=== PATIENT | female | born 1945 | race Caucasian/White ===

== ENCOUNTER 2018-06-26 19:02 | Emergency (ER) | payer MEDICARE ==
[~2018-06-26] VITALS: Ht 162.6 cm; Wt 88.9 kg
[~2018-06-26 19:02] MED LIST: ACCUNEB SO1.25 MG/1 INH; ADVAIR HFA 230M12 GM INH; ADVAIR INHALER; ALDACTONE25 MG PO; ALLEGRA ALLERG180 MG PO; AMARYL4 MG PO; AMBIEN 10 MG TA10 MG PO; ASPIRIN EC81 M1 PO; ASPIRIN81 M2 PO; AUGMENTIN 875875 MG PO; BENADRYL25 MG PO; BROVANA15 MCG/2 M INH; CARBIDOPA-LEVO1 EAC2 PO; CEFAZOLIN2 GM/50 ML IV; CELEXA20 MG PO; CITROMA296 ML PO; CLEOCIN HCL300 MG PO; CLONAZEPAM 1 MG1 M1 PO; COLACE100 MG PO; COLESTIPOL HCL1 G1 PO; COUMADIN; COUMADIN 1MG TAB1 M1 PO; COUMADIN 3 MG TA3 M1 PO; COUMADIN7.5 MG PO; DEXTROSE 500.5 GM/ML IV PUSH; DUONEB 2.5-0.5 M3 ML INH; ENOXAPARIN100 MG/11 SUBQ; FENTANYL 0.50 MCG/ML IV; FUROSEMIDE; GARLIC100 MG PO; GLUCAGON HCL1 MG IM; GLUCOSE GEL38 GM PO; HYDROCODONE-AP1 EAC6 PO; JANUVIA 50 MG T50 M1 PO; JANUVIA100 MG PO; JUVEN PACKET1 EACH PO; KEFLEX250 MG PO; KEFLEX500 MG PO; KLOR-CON 10 ER10 MEQ PO; LANOXIN 0.250.25 MG; LANTUS SUBQ; LASIX 40 MG TAB40 M2 PO; LASIX 80 MG TAB80 MG PO; LEVEMIR SUBQ; LEVOTHYROXIN0.025 MG PO; LEVOTHYROXINE0.05 MG PO; LIDOCAINE 4% K1 EACH TP; LIDOCAINE 4% TOP; LISINOPRIL5 MG; METFORMIN HCL1000 M1; MINOCIN100 MG PO; NAPHCON-A EYE D15 ML OPHTHALMIC; NORCO 5-325 TA1 EACH PO; NOVOLOG100 UNIT/1 SUBQ; NYAMYC15 GM TOP; OXYCODONE HCL 55 MG PO; OXYCODONE HCL10 MG PO; OXYCONTIN10 M1 PO; PEPCID AC20 MG PO; PERCOCET PO; PREDNISONE 20 M20 MG PO; PRILOSEC20 MG PO; SINEMET 25-1001 EAC1 PO; SINGULAIR 10 MG10 M1 PO; SODIUM CHLORIDE10 ML IV; SYMBICORT160 MCG/4. INH; TRADJENTA5 MG PO; VENTOLIN HFA 1818 GM INH; VERAPAMIL ER240 M1; VITAMIN D3400 UNIT PO; VITAMINC500 PO; ZOSYN 4/0.5 GM4.5 G2 IVPB
[2018-06-26] MEDS ORDERED: MELATONIN5 M1 (19:15)
[2018-06-26 19:43] LABS: ABSOLUTE BASOPHILS 0.1 thou/uL (0.0-0.2); ABSOLUTE EOSINOPHILS 0.1 thou/uL (0.0-0.7); ABSOLUTE LYMPHOCYTES 0.9 thou/uL (0.8-5.3); ABSOLUTE MONOCYTES 1.1 thou/uL (0.0-1.2); ABSOLUTE NEUTROPHILS 6.8 thou/uL (1.6-8.1); BASOPHILS 0.6 %; EOSINOPHILS 0.8 %; HEMATOCRIT 35.6 % (37.0-47.0); HEMOGLOBIN 11.4 gm/dL (12.0-15.0); MCH 28.6 pg (26.0-34.0); MCV 89.2 fL (80.0-100.0); MONOCYTES 12.4 %; MPV 11.3 fl. (7.2-11.1); NUCLEATED RBCS 0 /100WBC; PLATELET COUNT* 172 thou/uL (150-400); POLYS 76.2 %; RBC 3.99 mil/uL (4.20-5.00); RDW-CV 16.9 % (10.5-14.5); WBC 8.9 thou/uL (4.0-11.0)
[2018-06-26 19:52] LABS: ANION GAP 7 mmol/L (7-16); BUN 32 mg/dL (7-18); CALCIUM 8.1 mg/dL (8.5-10.1); CHLORIDE 99 mmol/L (98-107); CO2 31 mmol/L (21-32); CREATININE 1.8 mg/dL (0.6-1.3); GLUCOSE 126 mg/dL (70-99); POTASSIUM 4.3 mmol/L (3.5-5.1); SODIUM 137 mmol/L (136-145)
[2018-06-26 19:53] LABS: APTT 57.7 Seconds (25.0-31.3); PROTIME 62.9 Seconds (9.20-11.50)
[2018-06-26 20:02] LABS: ALBUMIN 2.6 g/dL (3.4-5.0); ALKALINE PHOSPHATASE 190 U/L (46-116); LIPASE 204 U/L (73-393); NT-PRO BRAIN NAT PEPTIDE 2815 pg/mL (<300); SGOT 15 U/L (15-37); SGPT < 6 U/L (30-65); TOTAL BILIRUBIN 0.7 mg/dL (<0.1-1.0); TOTAL PROTEIN 6.5 g/dL (6.4-8.2); TROPONIN-I LEVEL <0.06 ng/mL (<0.06)
[2018-06-26 20:03] LABS: INR 6.2
[2018-06-26 20:33] LABS: URINE BILIRUBIN NEGATIVE (Negative); URINE BLOOD NEGATIVE (Negative); URINE CLARITY CLEAR; URINE COLOR YELLOW; URINE GLUCOSE-RANDOM NEGATIVE (Negative); URINE KETONES NEGATIVE (Negative); URINE LEUKOCYTES 2+ (Negative); URINE NITRITE NEGATIVE (Negative); URINE PROTEIN NEGATIVE (Negative); URINE SPECIFIC GRAVITY 1.015 (1.005-1.030); URINE UROBILINOGEN 0.2 E.U./dl (0.2-1.0)
[2018-06-26 20:57] LABS: CASTS None Seen /LPF (None Seen); SQUAMOUS 4-10 Moderate /LPF (0-3)
[2018-06-26 20:59] LABS: BACTERIA 1-9 Few /HPF (None Seen); CRYSTALS None Seen /LPF (None Seen); URINE RBC 0-2 Rare /HPF (0-2); URINE WBC 6-15 Few /HPF (0-5)
[2018-06-26] MEDS ORDERED: KEFLEX500 M1 PO (21:02)
[2018-06-26] MEDS ORDERED: ONDANSETRON HCL4 M2 PO (21:02)
[2018-06-26 21:48] VITALS: BP 147/58
--- NOTE | 2018-06-27 10:05 | EKG ---
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 : 1945 Requested By: Tess Berman Order Number: [id number] MD: Gallito Hinkle Measurements Intervals [place] Rate: 80 P: HI: QRS: -75 QRSD: 160 T: 95 QT: 439 QTc: 507 Interpretive Statements Afib/flut and V-paced complexes No further analysis attempted due to paced rhythm Compared to ECG 02/20/2017 10:55:15 No significant changes Electronically Signed On 06-27-2018 10:05:10 CDT by Gallito Hinkle [email or web address] <ELECTRONICALLY SIGNED> By: Gallito Hinkle MD, [facility] 06/27/18 [phone] 39 Gallito Hinkle MD, [facility] /EPI
== END 2018-06-26 21:49 | disposition home or self-care (01) ==
LOC: M.ERS 19:02
PROVIDERS: Nurse Practitioner Family
DX: R79.1 Abnormal coagulation profile (principal); N39.0 Urinary tract infection, site not specified; E86.0 Dehydration; E11.9 Type 2 diabetes mellitus without complications; I48.91 Unspecified atrial fibrillation; J45.909 Unspecified asthma, uncomplicated; J44.9 Chronic obstructive pulmonary disease, unspecified; G47.30 Sleep apnea, unspecified; Z79.4 Long term (current) use of insulin; Z90.49 Acquired absence of other specified parts of digestive tract; Z98.890 Other specified postprocedural states; Z88.1 Allergy status to other antibiotic agents; Z88.2 Allergy status to sulfonamides; Z88.8 Allergy status to other drugs, medicaments and biological substances

== ENCOUNTER 2018-12-16 08:32 | Inpatient (IN) | payer MEDICARE ==
[2018-12-16] VITALS (10 sets, daily range): BP systolic 127–151; BP diastolic 58–79
[~2018-12-16] VITALS: Ht 162.6 cm; Wt 94.3 kg
[~2018-12-16 08:32] MED LIST changes: +CLONAZEPAM 0.50.5 M1 PO; -CLONAZEPAM 1 MG1 M1 PO; +COUMADIN 2 MG TA2 M1 PO; +KEFLEX500 M1 PO; -LEVOTHYROXIN0.025 MG PO; +MELATONIN5 M1; +ONDANSETRON HCL4 M2 PO; +SYNTHROID112 MC1 PO
[2018-12-16] MEDS ORDERED: ADVAIR 100-501 EACH INH (08:39)
[2018-12-16] MEDS ORDERED: ALBUTEROL2.5 MG/31 INH (08:39)
[2018-12-16] MEDS ORDERED: NORVASC10 MG PO (08:40)
[2018-12-16] MEDS ORDERED: PROMETHAZINE12.5 M1 PO (08:42)
[2018-12-16] MEDS ORDERED: ZOLOFT50 MG PO (08:42)
[2018-12-16] MEDS ORDERED: PREDNISONE 10 M10 MG PO (08:43)
[2018-12-16] MEDS ORDERED: MUCINEX600 MG PO (08:44)
[2018-12-16] MEDS ORDERED: HYDRALAZINE HC100 MG PO (08:45)
[2018-12-16] MEDS ORDERED: IPRATROPIU0.2 MG/1 M INH (08:45)
[2018-12-16] MEDS ORDERED: PEPCID20 MG PO (08:46)
[2018-12-16] MEDS ORDERED: DOXYCYCLINE 10100 MG PO (08:47)
[2018-12-16] MEDS ORDERED: BUMETANIDE2 M1 PO (08:47)
[2018-12-16] MEDS ORDERED: XANAX 0.25 MG0.25 MG PO (08:48)
[2018-12-16] MEDS ORDERED: PROTONIX40 M1 PO (08:50)
[2018-12-16] MEDS ORDERED: ADVIL200 M1 PO (08:51)
[2018-12-16] MEDS ORDERED: GABAPENTIN 100100 MG PO (08:51)
[2018-12-16] MEDS ORDERED: CATAPRES-TTS 11 EACH TRANSDERM (08:53)
[2018-12-16 09:02] LABS: BE 1.5 mmol/L (-2 to +3); PO2 75.1 mmHg (75.0-100.0); pH 7.304 (7.340-7.450)
[2018-12-16 09:03] LABS: PCO2 58.9 mmHg (35.0-45.0)
--- NOTE | 2018-12-16 09:07 | NUR ---
PT HAS MULTIPLE BRUISES TO BODY.
[2018-12-16 09:33] LABS: HEMATOCRIT 26.9 % (37.0-47.0); HEMOGLOBIN 8.5 gm/dL (12.0-15.0); MCH 29.3 pg (26.0-34.0); MCHC 31.7 g/dL (28.0-37.0); MCV 92.5 fL (80.0-100.0); MPV 9.8 fl. (7.2-11.1); NUCLEATED RBCS 0 /100WBC; PLATELET COUNT* 151 thou/uL (150-400); RDW-CV 19.5 % (10.5-14.5); WBC 13.3 thou/uL (4.0-11.0)
[2018-12-16 09:56] LABS: URINE BILIRUBIN NEGATIVE (Negative); URINE BLOOD NEGATIVE (Negative); URINE CLARITY CLEAR; URINE COLOR YELLOW; URINE GLUCOSE-RANDOM NEGATIVE (Negative); URINE KETONES NEGATIVE (Negative); URINE NITRITE-REFLEX NEGATIVE (Negative); URINE PROTEIN TRACE (Negative); URINE SPECIFIC GRAVITY 1.015 (1.005-1.030); URINE UROBILINOGEN 0.2 E.U./dl (0.2-1.0)
[2018-12-16 10:05] LABS: URINE LEUKOCYTES-REFLEX 3+ (Negative)
[2018-12-16 10:10] LABS: APTT 41.6 Seconds (25.0-31.3); INR 3.4; PROTIME 34.6 Seconds (9.20-11.50)
[2018-12-16 10:11] LABS: SQUAMOUS 0-3 Few /LPF (0-3); URINE RBC 0-2 Rare /HPF (0-2); URINE WBC-REFLEX >25 Many /HPF (0-5)
[2018-12-16 10:12] LABS: CASTS None Seen /LPF (None Seen); CRYSTALS None Seen /LPF (None Seen); YEAST-REFLEX Present (None Seen)
[2018-12-16 10:17] LABS: ALBUMIN 2.4 g/dL (3.4-5.0); ALKALINE PHOSPHATASE 144 U/L (46-116); ANION GAP 6 mmol/L (7-16); BUN 67 mg/dL (7-18); CALCIUM 7.8 mg/dL (8.5-10.1); CHLORIDE 104 mmol/L (98-107); CO2 28 mmol/L (21-32); CREATININE 2.1 mg/dL (0.6-1.3); GLUCOSE 178 mg/dL (70-99); MAGNESIUM 2.2 mg/dL (1.8-2.4); NT-PRO BRAIN NAT PEPTIDE 13550 pg/mL (<300); POTASSIUM 3.9 mmol/L (3.5-5.1); SGOT 32 U/L (15-37); SGPT 32 U/L (30-65); SODIUM 138 mmol/L (136-145); TOTAL BILIRUBIN 0.4 mg/dL (<0.1-1.0); TOTAL PROTEIN 5.6 g/dL (6.4-8.2); TROPONIN-I LEVEL <0.06 ng/mL (<0.06)
[2018-12-16 10:31] LABS: ABSOLUTE LYMPHOCYTES 1.2 thou/uL (0.8-5.3); ABSOLUTE MONOCYTES 0.9 thou/uL (0.0-1.2); ABSOLUTE NEUTROPHILS 11.2 thou/uL (1.6-8.1); ANISOCYTOSIS 1+; ATYPICAL LYMPHS 1 %; PLATELET ESTIMATE ADEQUATE
--- NOTE | 2018-12-16 12:16 | EKG ---
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
--- NOTE | 2018-12-16 20:18 | NUR ---
12/16 DAYS: NEW ADMIT FROM ED FOR RESPIRATORY DISTRESS, CHF EXACERBATION AND HYPOGLYCEMIA. B.S. LOW 69 HERE, PATIENT AT DINNER AFTER SUGAR OF 69 AND INCREASED TO 108. IV INFILTRATED, ATTEMPT FOR CENTRAL LINE WAS NOT SUCCESSFUL. RIGHT EJ WAS PLACED, PLAN FOR INFUSION THERAPY TO SEE TOMORROW IF NEEDED. PATIENT OFF BI-PAP UPON ARRIVAL, REMAINED AND TOLERATING 2L O2.
[2018-12-17] VITALS (10 sets, daily range): BP systolic 120–144; BP diastolic 54–62
--- NOTE | 2018-12-17 06:55 | NUR ---
PT TOLERATE NASAL CANNULA AT 2LPM BUT REQUESTED TO PUT ON BIPAP THE WHOLE NIGHT. RAGHAV BLEEDING AND RESPIRATORY DISTRESS
[2018-12-17 08:36] LABS: ABSOLUTE MONOCYTES 0.6 thou/uL (0.0-1.2); ABSOLUTE NEUTROPHILS 5.6 thou/uL (1.6-8.1); BASOPHILS 0.4 %; EOSINOPHILS 0.6 %; HEMATOCRIT 25.5 % (37.0-47.0); HEMOGLOBIN 7.9 gm/dL (12.0-15.0); LYMPHOCYTES 13.3 %; MCH 28.8 pg (26.0-34.0); MCHC 30.9 g/dL (28.0-37.0); MCV 93.5 fL (80.0-100.0); NUCLEATED RBCS 0 /100WBC; PLATELET COUNT* 134 thou/uL (150-400); POLYS 77.7 %; RBC 2.73 mil/uL (4.20-5.00); RDW-CV 19.6 % (10.5-14.5); WBC 7.2 thou/uL (4.0-11.0)
[2018-12-17 08:45] LABS: ALBUMIN 2.2 g/dL (3.4-5.0); CALCIUM 7.7 mg/dL (8.5-10.1); TOTAL BILIRUBIN 0.4 mg/dL (<0.1-1.0); TOTAL PROTEIN 5.1 g/dL (6.4-8.2)
[2018-12-17 08:53] LABS: BE 2.7 mmol/L (-2 to +3); PCO2 VENOUS 47.3 mmHg (41.0-51.0); PO2 VENOUS 169.8 mmHg (35.0-45.0)
--- NOTE | 2018-12-17 10:45 | NUR ---
SPOKE WITH DTR AT BEDSIDE, PT WILL OPEN HER EYES AND ANSWER SIMPLE QUESTIONS. [facility], MOST RECENTLY ADMITTED TO SNF ON 12/07. PER DTR, PT HAS BEEN IN AND OUT OF THE [facility] [place] AND SNF AT [facility] SINCE . WILL CHECK WITH ADMITTING FOR HOW MANY HOSPITAL DAYS AND SNF DAYS THEN PATIENT STILL HAS IN HER BENEFIT PERIOD. DISCUSSED ROLE OF CASE MGT WITH DTR, WILL CONTINUE TO FOLLOW.
--- NOTE | 2018-12-17 10:50 | NUR ---
Nutrition: Pt has pressure ulcers. Per RN, they are not bad. Pt is M/S tele. Will defer further assessment at this time.
--- NOTE | 2018-12-17 10:55 | NUR ---
SPOKE WITH PT AND DTR AT BEDSIDE. PT ALERT AND ABLE TO ANSWER QUESTIONS. PT HAS BEEN VERY INDEP IN HER SENIOR APT, SHE WALKS SEVERAL MILES TO GO TO [facility] [employer] [facility], HAS BEEN DOING VERY WELL AT HOME PRIOR TO THIS ADMISSION. VERY BRIEFLY DISCUSSED DISCHARGE OPTIONS, DEPENDING ON HOW SHE IS DOING WHEN SHE DISCHARGES. DTR SAID THAT PT COULD COME STAY WITH EITHER DTR, THEY WOULD KEEP HER APT UNTIL THE PT DECIDED IF SHE WANTED TO GO BACK TO LIVING ALONE OR NOT. ANTICIPATE PT WILL NEED SOME LEVEL OF REHAB AT DISCHARGE. CASE MGT WILL CONTINUE TO FOLLOW.
--- NOTE | 2018-12-17 13:01 | NUR ---
REPORT GIVEN TO JOLIE GRIJALVA, ALL QUESTIONS ANSWERED. PATIENT TRANSFERED BY BED TO ROOM 205 WITH NURSING STAFF. CHART, BELONGINGS AND MEDICATION SENT WITH PATIENT. DAUGHTER PRESENT AT TIME OF TRANSFER.
--- NOTE | 2018-12-17 15:47 | NUR ---
PT TRANSFERED AROUND 1300 PT IS ALERT AND ORIENTED X 4 PT DENIES GONZALEZ OR SOA ON RA PT IS BEDREST UNABLE TO AMBULATE PT IS SR ON THE MONIOR PT HAS PACEMAKER, PT IS Q 2 HOUR TURNS, PT IS PLEANSANT AND COOPERATIVE ANTIBIOTIC RUNNING, WILL CONTINUE TO MONITOR
[2018-12-18] VITALS: BP 133/49
[2018-12-18 04:00] VITALS: BP 143/76
--- NOTE | 2018-12-18 07:57 | CON ---
[address] [address] CONSULTATION Name: JULIUS GRISSOM Room: [address] IN M.R.#: [id number] Admission: 12/16/18 Attend Phys: Naseem Mock MD Discharge: Date of : 45 Report #: [id number] THIS REPORT FOR: //name// CC: Naseem Wing [facility] DATE OF SERVICE: 12/17/2018 REFERRING PHYSICIAN: Naseem Mock M.D. HISTORY OF PRESENT ILLNESS: The patient is a 73-year-old female who presented to the Emergency Room with shortness of breath. According to the patient, she is a [facility] resident and has been there for about a month or so. She states that she was diagnosed with pneumonia and transferred to the Emergency Room where she was admitted to the hospital. She initially had been placed on BiPAP therapy, has transitioned to a nasal cannula. This morning, she is doing well, she is not short of breath. According to the patient, she denies fever, chills, cough, phlegm production, nausea, vomiting, abdominal pain. She states that she has not had any difficulty with urination. She does have some trouble with constipation at times. She has not had any hematuria or hematochezia. SOCIAL HISTORY: She is . She is a prior smoker, unclear as to the length of smoking she has had in the past. She has been a [facility] resident historically. PAST MEDICAL HISTORY: Significant for large abdominal wall hernia. She has had pacemaker insertion, mitral valve replacement, history of diabetes, chronic atrial fibrillation in the past. She has had cholecystectomy. She has a history of sleep apnea, COPD, hypothyroidism. ALLERGIES: VANCOMYCIN, BETA NADIA, STATINS, SULFA DRUGS, TAPE, FRESH FROZEN PLASMA, QUINOLONES. FAMILY HISTORY: Not pertinent for age at this time. CURRENT MEDICATIONS: Solu-Medrol, Zosyn, clonidine, levothyroxine, DuoNeb aerosol treatments, gabapentin, Protonix, OxyContin p.r.n., alprazolam for anxiety p.r.n., clonazepam, famotidine, Zosyn, sertraline. PHYSICAL EXAMINATION: VITAL SIGNS: Blood pressure 144/60, respiratory rate 20-22, pulse rate 80, and 100% pacing at irregular pacing rhythm. Temperature 98.5 degrees. Her weight 191 pounds. GENERAL APPEARANCE: She is awake, alert. She appears [place] [address] CONSULTATION Name: JULIUS GRISSOM Room: [address] IN [facility]#: [id number] Admission: 12/16/18 Attend Phys: Naseem Mock MD Discharge: Date of : 45 Report #: [id number] time being to person and place. She is not in any respiratory distress, not using accessory muscles. HEENT: Head is atraumatic. Eyes: Pupils are round, equal, reactive. She does have some erythema in the conjunctival region medially on the right eye. There is some dark area, appears to be bruising under her right eye. She states that it has been present for some time as a result of a prior fall a couple of years ago. Nose: Nasal passages are patent. Oral cavity: Moist, no lesions. NECK: No adenopathy or JVD. CHEST: She has some crackles in the right base, otherwise without rhonchi or wheezes. Breath sounds are equal bilaterally. CARDIOVASCULAR: She has a murmur of a prosthetic valve. She states she has had a mitral valve replacement. No appreciable murmurs. ABDOMEN: Large abdominal wall herniation present and there is no tenderness. Areas of hardness present inferior lateral to the abdominal wall herniation. There is no tenderness or rebound. EXTREMITIES: Negative for edema. No evidence of clubbing. SKIN: Warm and dry. No rash effect. NEUROLOGIC: She is able to move all 4 extremities. No lateralizing signs. LABORATORY DATA: Sodium 143, potassium 4.0, chloride 107, CO2 of 28, BUN of 57, creatinine 2.0, EGFR 24. Hemoglobin and hematocrit of 8 and 26 with a white count of 7200, platelet count is low at 134,000. Arterial blood gas obtained this morning reveals pH 7.439, pCO2 of 47, pO2 of 170, bicarbonate of 28, presumed to be on nasal cannula; at this time she is 100% on 2 liters. She will be changed to room air. The patient is normally not on oxygen therapy. MEDICAL IMAGING STUDIES: Chest x-ray: Cardiomegaly, evidence of median sternotomy with valve replacement, moderate left pleural effusion, some right basilar interstitial changes. CT of the chest on admission performed without contrast did indeed demonstrate multiple nodules throughout bilaterally, small right effusion, cardiomegaly with coronary artery calcification, multiple healed right rib fractures present. ASSESSMENT: 1. Pleural effusion. 2. Exacerbation of chronic obstructive pulmonary disease. 3. Anxiety. 4. Large abdominal wall herniation. 5. Status post mitral valve replacement a few years ago. RECOMMENDATION: Aspiration precautions, continue aerosol treatments. I feel that her steroids can be tapered and switched to oral in the next 24-48 hours. Otherwise, continue with current regimen. Bedside spirometry would be warranted. In addition to the above, multiple pulmonary nodules had been identified on her [facility] [address] [place] [address] CONSULTATION Name: JULIUS GRISSOM Room: [address] IN .R.#: [id number] Admission: 12/16/18 Attend Phys: Naseem Mock MD Discharge: Date of : 45 Report #: [id number] of the chest and a followup CT should be performed anywhere between 4 and 6 months at this time. <ELECTRONICALLY SIGNED> By: Luis Manuel Jordan MD 12/18/18 0757 1007 [id number] So MD /nt
[2018-12-18 08:19] VITALS: BP 147/77
--- NOTE | 2018-12-18 08:25 | NUR ---
PT IS ABLE TO COMMUNICATE HER NEEDS TO STAFF EFFECTIVELY. SHE HAS DENIED THE NEED FOR PAIN MEDICATION UP TO THIS TIME. BURKE IS PATENT. 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 FAMILY DISCUSSING POSSIBLE HOME WITH HOSPICE LATER THIS WEEK.
--- NOTE | 2018-12-18 10:45 | NUR ---
ASSUMED CARE OF PT THIS AM AROUND 07- MANAGER CONTENT IN PLACE ORDERED, TRACING V-PACED WITH BBB- UPON ASSESSMENT PT NOTED TO BE RESTING IN BED- UPON ASSESSMENT PT NOTED TO RESTING IN BED, WATCHING TV- PT A&O X4- CONTINENT OF BOWEL/TURK IN PLACE D/D CLEAR YELLOW URINE- EXT ASSIST WITH TRANSFERS- LCTA, RESP EVEN AND UN-LABORED- VSS, O2 SAT 100% ON BIPAP THIS AM- ABD SOFT/OBESE/NON-TENDER, BS X4 QUADS-RIGHT ABD HERNIA NOTED- LAST BM REPORTED 12/16/18- IV NOTED TO RIGHT IJ, NOTED INTACT AND SL- GOOD PO INTAKE NOTED THIS AM WITH BREAKFAST- BS MONITORED ORDERD, INSULIN PRESCIBED-PT RATES PAIN 03/11 TO TAILBONE THIS AM, REPOSITIONING IN PLACE WITH PT REPORTING TO BE EFFECTIVE- CALL LIGHT AND PERSONAL BELONGINGS WITH IN REACH- HOURLY ROUNDS IN PLACE R/T SAFETY/NEEDS- ALL NEEDS MET AT THIS TIME-WCTM
--- NOTE | 2018-12-18 12:29 | NUR ---
CM spoke with [place] at [facility], Pt has used 50 skilled days.
[2018-12-18 12:48] VITALS: BP 148/67
[2018-12-18 17:39] VITALS: BP 131/68
--- NOTE | 2018-12-18 18:49 | NUR ---
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
[2018-12-18 19:30] VITALS: BP 155/76
[2018-12-19] VITALS (7 sets, daily range): BP systolic 119–152; BP diastolic 61–76
--- NOTE | 2018-12-19 05:49 | NUR ---
VITALS WNL. SEE MAR. SEE CHARTING. FALL PRECAUTIONS IN PLACE. HOURLY ROUNDING FOR SAFETY.
--- NOTE | 2018-12-19 05:58 | CON ---
[address] [address] CONSULTATION Name: JULIUS GRISSOM Room: [address] IN M.R.#: [id number] Admission: 12/16/18 Attend Phys: Naseem Mock MD Discharge: Date of : 45 Report #: [id number] THIS REPORT FOR: //name// CC: Naseem Mata DATE OF SERVICE: 12/18/2018 INFECTIOUS DISEASE CONSULTATION ATTENDING PHYSICIAN: Dr. Cantor. REASON FOR EVALUATION: Nodular pneumonitis complicated by respiratory failure. HISTORY OF PRESENT ILLNESS: Chart reviewed, patient examined. This is a 73-year-old woman, with history of mechanical heart valve, also has diabetes mellitus, who is actually in a facility, was hospitalized with progressive dyspnea. It is notable she had hospitalization at different facility for pneumonitis as well. Due to her hypoxemia, she has required BiPAP, although she is generally oriented, seems lucid. Evaluation including CT of the chest noted multiple nodules throughout the lungs bilaterally, greater on the right, largest being 3 cm that is felt to be inflammatory in nature. It is notable blood cultures are sterile thus far. She was started empirically on piperacillin and tazobactam, although she feels somewhat better at this point. Denies any significant gastrointestinal related complaints. ALLERGIES: LISTED TO BETA NADIA, SULFA, STATINS, VANCOMYCIN, LEVOFLOXACIN, DESCRIBED MUSCLE WEAKNESS AND PAIN. CURRENT MEDICATIONS: Include insulin, famotidine, clonazepam, Zosyn, acetaminophen, levothyroxine, ipratropium and albuterol inhaler, gabapentin, pantoprazole, sertraline, oxycodone, alprazolam, prednisone 40 daily. PAST MEDICAL HISTORY: Diabetes mellitus, mechanical prosthetic mitral valve, history of atrial fibrillation, asthma, previous pacemaker, bilateral knee replacement, COPD, sleep apnea, hemolytic anemia. SOCIAL HISTORY: Former smoker. No ethanol, no illicit drug use. FAMILY HISTORY: Noncontributory. REVIEW OF SYSTEMS: Denies any significant gastrointestinal-related complaints. No nausea, no diarrhea; otherwise, unremarkable 10-point review of systems. PHYSICAL EXAMINATION: GENERAL: She is in moderate distress at this point. She has [place] [address] CONSULTATION Name: JULIUS GRISSOM Room: [address]#: [id number] Admission: 12/16/18 Attend Phys: Naseem Mock MD Discharge: Date of : 45 Report #: [id number] HEENT: She actually has a contused area periorbitally and some subconjunctival hemorrhage as well as hemorrhage involving the sclerae. She is lucid. She was oriented, known to me from several years ago, appears chronically ill, undernourished. VITAL SIGNS: Temperature 98, pulse 73, respirations 18, blood pressure 148/67. SKIN: Warm, dry, no rashes. HEENT: As noted above. Extraocular muscles intact. Normocephalic. NECK: Supple. LUNGS: Scattered coarse breath sounds. HEART: Regular, has a prosthetic valve click. ABDOMEN: Obese, distended, soft. There are no peritoneal signs. GENITOURINARY: Deferred. RECTAL: Deferred. LABORATORY DATA: Blood cultures are sterile thus far. Urine with growth of Streptococcus and yeast. Prealbumin of 19.7. LDH elevated at 374. Renal ultrasound showed low attenuation mass. On the anterior upper right kidney, there is question of a subcapsular hematoma. ABGs, pH 7.304, pCO2 of 58.9, pO2 of 75.1 on 2 liters. SG-etv-bnkkp natriuretic peptide 11,710. Electrolytes: Sodium 143, potassium 4.0, chloride 107, bicarbonate 28, anion gap of 8, BUN and creatinine 57 and 2.0, glucose of 112. LFTs unremarkable. Albumin of 2.2, total protein of 5.1. CBC: White count of 7.2, H and H 7.9 and 25.5, platelets of 134. CT chest as noted above. CT of the abdomen and pelvis, distended abdomen, large amount of peritoneal fat, there is a 4 x 10 cm mass in the lateral capsular right kidney, there is question of a cyst. ASSESSMENT: Nodular pneumonitis, somewhat concerning with her prosthetic valve. Even though the blood cultures are negative, we will get a transthoracic echo and perhaps a JAMES depending on the results, certainly could consider bacterial etiology and can exclude a fungal etiology as well. She seems to have improved on the antibacterials, only to have relapse, which certainly raises question of occult site and perhaps, these are embolic type lesions. <ELECTRONICALLY SIGNED> By: Rod Carranza MD 12/19/18 0558 1437 [id number] Carranza MD /nt
--- NOTE | 2018-12-19 09:00 | NUR ---
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 SUPERVISOR IN PLACE ORDERED, TRACING V-PACED WITH BBB,1ST DEGREE- UPON ASSESSMENT PT NOTED TO BE RESTING IN BED, BIPAP IN PLACE- PT A&O X4- CONTINENT OF BOWEL, TURK IN PLACE D/D CLEAR YELLOW URINE- BED REST IN PLACE WITH Q2 HOUR TURNS INDICATED- LCTA, RESP EVEN AND UN-LABORED- VSS, O2 SAT 1005 ON BIPAP- ABD SOFT/OBESE/NON-TENDER, BS X4 QUADS- GOOD PO INTAKE NOTED THIS AM WITH BREAKFAST, BS MONITORED ORDERED WITH INSULIN PRESCIBED- PT/OT EVAL TX INITAITED THIS AM- IV NOTED TO RIGHT IJ AND LEFT FA INTACT AND SL- IV ABT PRESCIBED- BARRIOR CREAM TO COCCYX INDICATED- 2+ BLE EDEMA NOTED- PT DENIES ANY C/O PAIN/DISCOMFORT AT THIS TIME- CALL LIGHT AND PERSONAL BELONGINGS WITH IN REACH- HOURLY ROUNDS IN PLACE R/T SAFETY/NEEDS- ALL NEEDS MET AT THIS TIME-WCTM
[2018-12-19 10:37] LABS: ABSOLUTE LYMPHOCYTES 0.8 thou/uL (0.8-5.3); ABSOLUTE MONOCYTES 0.5 thou/uL (0.0-1.2); ABSOLUTE NEUTROPHILS 5.6 thou/uL (1.6-8.1); BASOPHILS 0.4 %; EOSINOPHILS 0.7 %; HEMATOCRIT 25.4 % (37.0-47.0); HEMOGLOBIN 8.2 gm/dL (12.0-15.0); MCH 29.8 pg (26.0-34.0); MCHC 32.1 g/dL (28.0-37.0); MCV 93.1 fL (80.0-100.0); MONOCYTES 7.4 %; MPV 9.1 fl. (7.2-11.1); NUCLEATED RBCS 0 /100WBC; PLATELET COUNT* 134 thou/uL (150-400); POLYS 79.5 %; RBC 2.73 mil/uL (4.20-5.00)
[2018-12-19 10:50] LABS: ALBUMIN 2.2 g/dL (3.4-5.0); CALCIUM 8.1 mg/dL (8.5-10.1); CREATININE 2.1 mg/dL (0.6-1.3); POTASSIUM 5.1 mmol/L (3.5-5.1); TOTAL BILIRUBIN 0.3 mg/dL (<0.1-1.0); TOTAL PROTEIN 5.3 g/dL (6.4-8.2)
--- NOTE | 2018-12-19 13:31 | 2DMMODE ---
[place] [address] 2 D/M-MODE ECHOCARDIOGRAM Name: JULIUS GRISSOM Room: [address] IN [facility]#: [id number] Admission: 12/16/18 Attend Phys: Naseem Mock, Discharge: Date of : 45 Date of Service: 12/19/18 1331 Report #: [id number] THIS REPORT FOR: //name// APPROVED REPORT Study performed: 12/19/2018 11:31:32 EXAM: Comprehensive 2D, Doppler, and color-flow Echocardiogram Patient Location: In-Patient Room #: [facility] Status: routine BSA: 1.99 HR: 84 bpm BP: 145/76 mmHg Rhythm: NSR Other Information Study Quality: Good Indications Congestive Heart Failure Dyspnea 2D Dimensions IVSd: 12.52 (7-11mm) LVOT Diam: 19.70 (18-24mm) LVDd: 59.79 mm PWd: 14.71 (7-11mm) Ascending Ao: 30.86 (22-36mm) LVDs: 37.28 (25-40mm) Aortic Root: 28.59 mm Volumes Left Atrial Volume (Systole) LA ESV Index: 76.50 mL/m2 Aortic Valve AoV Peak Fadi.: 2.64 m/s AO Peak Gr.: 27.88 mmHg LVOT Max P.47 mmHg AO Mean Gr.: 15.55 mmHg LVOT Mean P.76 mmHg LVOT Max V: 0.93 m/s AO V2 VTI: 50.62 cm LVOT Mean V: 0.61 m/s MARCUS (VTI): 1.20 cm2 LVOT V1 VTI: 19.87 cm TDI Medial E' Fadi.: 0.07 m/s Lateral E' Fadi.: 0.13 m/[place] [address] 2 D/M-MODE ECHOCARDIOGRAM Name: JULIUS GRISSOM Room: [address] IN .R.#: [id number] Admission: 12/16/18 Attend Phys: Naseem Mock, Discharge: Date of : 45 Date of Service: 12/19/18 1331 Report #: [id number] Pulmonary Valve PV Peak Fadi.: 1.11 m/s PV Peak Gr.: 4.89 mmHg Tricuspid Valve RAP Estimate: 5.00 mmHg TR Peak Gr.: 27.71 mmHg RVSP: 32.00 mmHg PA Pressure: 32.00 mmHg Left Ventricle The left ventricle is normal size. There is abnormal septal motion Mild concentric left ventricular hypertrophy. Left ventricular systolic function is moderately decreased. LVEF is 35-40%. Right Ventricle The right ventricle is normal size. The right ventricular systolic function is normal. Pacemaker lead is present in the right ventricle. Atria Left atrium is severely dilated. Right atrium is dilated. Aortic Valve Moderate aortic valve sclerosis. No aortic regurgitation is present. Mild to moderate aortic stenosis. Mitral Valve There is a mechanical mitral valve. There is no mitral valve regurgitation noted. No evidence of mitral valve stenosis. Tricuspid Valve The tricuspid valve is normal in structure. Moderate tricuspid regurgitation. Mild pulmonary hypertension. Pulmonic Valve The pulmonary valve is normal in structure. There is no pulmonic valvular regurgitation. Great Vessels The aortic root is normal in size. IVC is dilated and collapses <50% with inspiration. Pericardium There is no pericardial effusion. <Conclusion> The left [place] [address] 2 D/M-MODE ECHOCARDIOGRAM Name: JULIUS GRISSOM Room: [address] IN M.R.#: [id number] Admission: 12/16/18 Attend Phys: Naseem Mock, Discharge: Date of : 45 Date of Service: 12/19/18 1331 Report #: [id number] Mild concentric left ventricular hypertrophy. Left ventricular systolic function is moderately decreased. LVEF is 35-40%. The right ventricle is normal size. Left atrium is severely dilated. Right atrium is dilated. Moderate aortic valve sclerosis. No aortic regurgitation is present. Mild to moderate aortic stenosis. There is a mechanical mitral valve. There is no mitral valve regurgitation noted. No evidence of mitral valve stenosis. The tricuspid valve is normal in structure. Moderate tricuspid regurgitation. Mild pulmonary hypertension. There is no pericardial effusion. There is abnormal septal motion Pacemaker lead is present in the right ventricle. <ELECTRONICALLY SIGNED> By: Smooth Dunn MD, FACC 12/19/18 1331 1331 133 Smooth Dunn MD, FACC /INF
[2018-12-19 14:18] LABS: PROTIME 14.1 Seconds (9.20-11.50)
[2018-12-19 14:19] LABS: INR 1.4
--- NOTE | 2018-12-19 15:43 | NUR ---
CM spoke with Pt and dtr, plan continues to be for Pt to dc to [facility] skilled at dc. Following.
--- NOTE | 2018-12-19 16:50 | NUR ---
PT KOLBY RESTING IN BED SIDE CHAIR, AT SIDE- FISHING VESSEL MATE IN PLACE ORDERED, TRACING V-PACED WITH BBB- IV TO RIGHT IJ AND LEFT FA INTACT AND SL- IV ABT PRESCIBED THIS SHIFT- GOOD PO INTAKE NOTED THIS SHIFT WITH MEALS- PT WORKING WITH THERAPIES THIS SHIFT PRESICBED, TOLERATING WITH SLOW ADVANCE TOWARDS GOALS- ONE TIME ORDER FOR LASIX 60MG GIVEN THIS SHIFT PRESCRIBED- SINGULAIR Q HS AND COUMADIN FAILY ADDED AND GIVEN PRESCIBED- DRESSING TO RIGHT FA CHANGED THIS SHIFT, CLEANED WITH WW, PAT DRY WITH XERFORM GAUZE APPLIED AND COVERED WITH 4X4 AND WRAPPED WITH BULKEE GAUZE AND SECURED WITH TAPE- ECHO COMPLETED THIS SHIFT ORDERED, RESULTED AT LVEF OF 35-40%- ALL NEEDS MET AT THIS TIME-WCTM
[2018-12-20] VITALS (7 sets, daily range): BP systolic 129–143; BP diastolic 54–73
--- NOTE | 2018-12-20 06:22 | NUR ---
VITALS WNL. SEE MAR. SEE CHARTING. FALL PRECAUTIONS IN PLACE. HOURLY ROUNDING FOR SAFETY.
--- NOTE | 2018-12-20 09:02 | NUR ---
ASSUMED CARE OF PT THIS AM AROUND 0715- SOA ARCHITECT IN PLACE ORDERED, TRACING V-PACED WITH BBB- UPON ASSESSMENT PT NOTED TO BE RESTING IN BED, EYES CLOSED- PT A&O X4, FORGETFULL- CONTINENT VS INCONTINENT OF BOWEL AND BLADDER- EXT ASSIST X2/CRISTI FOR TRANSFERS- LCTA, DIMINISHED IN BASES- VSS, O2 SAT 100% ON BIPAP THIS AM-ABD FIRM/DISTENDED/NON-TENDER/ABD HERNIA NOTED- BS X 4 QUADS- LAST BM REPORTED 12/19/18- IV NOTED TO RIGHT IJ INTACT, IV ABT INFUSSING PRESCIBED- GOOD PO INTAKE NOTED THIS AM WITH BREAKFAST- BS MONITORED ORDERED, INSULIN PRESCIBED- DRESSING NOTED INTACT TO COCCYX THIS AM- Q [address] INDICATED- CALL LIGHT AND PERSONAL BELONGINGS WITH IN REACH- HOURLY ROUNDS IN PLACE R/T SAFETY/NEEDS- ALL NEEDS MET AT THIS TIME-WCTM
[2018-12-20 10:46] LABS: CALCIUM 8.4 mg/dL (8.5-10.1); MAGNESIUM 2.4 mg/dL (1.8-2.4); POTASSIUM 4.8 mmol/L (3.5-5.1)
--- NOTE | 2018-12-20 17:37 | NUR ---
PT ADA RESTING IN BED, AT SIDE VISITING-CARDAIC MONITOR IN PLACE ORDERED, TRACING V-PACED/BBB- IV REPLACED TO LEFT FA 20 GAUGE THIS SHIFT, IV ABT GIVEN THIS SHIFT PRESCIBED- GOOD PO INTAKE NOTED WITH MEALS THIS SHIFT, BS MONITORED WITH INSULIN PRESCIBED- CHEST X-RAY COMPLETED THIS SHIFT WITH NO SIGNIFICANT CHANGES NOTED- IV LASIX 40MG IV TO RESUME 12/21/18- WN HERE TO ASSESS COCCYX WOUND THIS SHIFT- AREA CLEANED AND DRESSED PER WN WITH ORDERES NOTED- PT WORKING WITH PT/OT THIS SHIFT IN BED, REFUSED TO GET UP THIS SHIFT- CALL LIGHT AND PERSONAL BELONGINGS WITH IN REACH- Q 2HOUR TURNS IN PLACE, NOTED INCONTINENT EPISODES THIS SHIFT- LARGE BM NOTED TODAY- PT MAKES NEEDS KNOWN- ALL NEEDS MET AT THIS TIME-WCTM
[2018-12-21] VITALS: BP 119/65
[2018-12-21 04:00] VITALS: BP 123/60
--- NOTE | 2018-12-21 05:52 | NUR ---
VITALS SIGNS STABLE. SEE MAR. SEE CHARTING. FALL PRECAUTIONS IN PLACE. HOURLY ROUNDING FOR SAFETY.
[2018-12-21 08:00] VITALS: BP 133/70
--- NOTE | 2018-12-21 10:22 | NUR ---
ASSUMED CARE OF PT AT 0730. PT RESTING IN BED. PT A&0X4, DENIES ANY PAIN OR SHORTNESS OF BREATH AT THIS TIME. PT TRACING V PACED ON THE BREAKER TABLE WORKER. ANASARCA NOTED. BRUISES THROUGHOUT. PT ON 1L NC SAT 98%. PT INCONT OF URINE. PT UP WITH MAX ASSIST. PT GOAL FOR TODAY IS WORK WITH PHYSICAL AND OCCUPATIONAL THERAPY, TITRATE OXYGEN AND DISCHARGE PLANNING. AM ASSESSMENT CHARTED. MEDICATIONS PER NOV. PT REPOSITIONED EVERY 2 HOURS FOR COMFORT. HOURLY ROUNDING OBSERVED, BED IN LOW POSITION. BED ALARM IN PLACE. FALL PRECAUTIONS IN PLACE. CALL LIGHT WITHIN REACH. WILL CONTINUE PLAN OF CARE.
[2018-12-21 12:00] VITALS: BP 156/45
--- NOTE | 2018-12-21 13:58 | NUR ---
LATE ENTRY: WOUND CARE NOTE 12/20/18. PATIENT PRESENTS WITH AN UNSTAGEABLE PRESSURE ULCER TO HER COCCYX MEASURING 0.8X0.9X0.2. MOIST, YELLOW, SLOUGH TISSUE TO 100% OF WOUND BED, FIRMLY ADHERENT. KENNEDI-WOUND INTACT. CLEANSED WITH WOUND CLEANSER, PATTED DRY. APPLIED AQUACEL AG AND COVERED WITH A BORDERED FOAM. PATIENT TOLERATED WELL. PATIENT WAS EDUCATED ON THE IMPORTANCE OF TURNING AND KEEPING OFF SORE, COMMUNICATED UNDERSTANDING. RECOMMEND TURN Q2 HOURS-KEEP OFF WOUND ENCOURAGE GOOD NUTRTION/HYDRATION FOLLOW UP IN WOUND CENTER
[2018-12-21 16:00] VITALS: BP 154/71
--- NOTE | 2018-12-21 17:04 | NUR ---
NO ACUTE CHANGES THROUGHOUT SHIFT. REFER TO CHARTING. PT WORKED WITH PT AND OT TODAY, TOLERATED WELL. PT RESTED WITH BIPAP ON WHEN SLEEPING. PT SLIGHTLY PROGRESSING TOWARDS GOALS. CONTINUES TO BE ON 1L NC SAT UPPER 90'S. DENIES ANY SHORTNESS OF BREATH. CONTINUES TO TRACE V PACED ON THE ASSISTANT PROFESSOR OF RADIOLOGY. PT UP WITH MAX ASSIST, PT INCONT OF URINE THROUGHOUT SHIFT. MEDICATIONS PER NOV. PT REPOSITIONED EVERY 2 HOURS FOR COMFORT. HOURLY ROUNDING OBSERVED, BED IN LOW POSITION. BED ALARM IN PLACE. FALL PRECAUTIONS IN PLACE. CALL LIGHT WITHIN REACH. WILL CONTINUE PLAN OF CARE.
--- NOTE | 2018-12-21 17:19 | CON ---
[address] [address] CONSULTATION Name: JULIUS GRISSOM Room: [address] IN M.R.#: [id number] Admission: 12/16/18 Attend Phys: Naseem Mock MD Discharge: Date of : 45 Report #: [id number] THIS REPORT FOR: //name// CC: Naseem Mata DATE OF SERVICE: 12/17/2018 HEMATOLOGY CONSULTATION NOTE HISTORY OF PRESENT ILLNESS: The patient is being seen in consultation at the request of the hospitalist for evaluation of anemia. This is occurring in the setting of recent respiratory insufficiency with shortness of breath and hypoglycemia. 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 The information is gleaned largely from my past notes and from the histories on her admission to the hospital here. The recent history consists of institutionalization at [facility] ever since she was discharged from [place] on 12/07/2018. At [facility], she had not had any major new symptoms until the onset of shortness of breath, but she remained bedfast, unable to stand. The patient was found to have Santi positive warm antibody hemolytic anemia on testing at [place] in late 07/2018 and this persisted in October, then 11/09/2018. She was placed on prednisone, initially at 40 mg per day, then tapered to 15, but her anemia worsened and she was brought back up to 20 mg per day; and at the time of her dismissal from [place] on 12/07/2018, she was on 30 mg per day. At [place], today, the patient reports that she had not had any recent bleeding. Her , who is at the bedside here this afternoon, said that she had not had any infectious problems either. 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 She required short-term CRRT during her last hospital stay at [place]. Additional information is that she previously had 3 pregnancies. She has had cholecystectomy, cardiac pacemaker, steroid-induced myopathy, one episode of rhabdomyolysis, tubal ligation, right hip surgery with open reduction and internal fixation and postoperative infection, requiring long-term suppression with minocycline [place] [address] CONSULTATION Name: JULIUS GRISSOM Room: [address] IN M.R.#: [id number] Admission: 12/16/18 Attend Phys: Naseem Mock MD Discharge: Date of : 45 Report #: [id number] hyperpigmentation (per Dr. Martinez in Dermatology). SOCIAL HISTORY: The patient is . She is a former smoker. She does not drink any alcohol. FAMILY HISTORY: Positive for one brother who had leukemia. The patient had one brother, but no sisters and no half siblings. REVIEW OF SYSTEMS: According to the patient today is that she has not had any recent headaches. No sudden episodes of blindness, diplopia or shivering lights. No purulent or watery nasal discharge, sores in the mouth. No nausea or vomiting. No bleeding from any site, including no spontaneous epistaxis, gum bleeding, hemoptysis, hematemesis, hematuria, vaginal bleeding or hematochezia and no melena. PHYSICAL EXAMINATION: GENERAL: Reveals alert, pleasant lady, using BiPAP. Her is at the bedside. She was alert and nodded her head or shook her head in responses to questions. HEENT: Pupils are equal. She does have arcus senilis. Extraocular movements are intact. Nasal passages are obscured and I cannot see the oropharynx. NECK: Reveals no cervical lymphadenopathy and she has no supraclavicular or infraclavicular adenopathy. There is no JVD. She has a venous port in the right neck that is tender to palpation. There is no axillary or inguinal adenopathy. LUNGS: Lung hough are clear anteriorly. HEART: Reveals normal rate. The rhythm seems irregular and there are crisp valve clicks. with some modest systolic murmur. BREASTS: Her breasts are not examined. ABDOMEN: Reveals obesity with an irregular surface contour. She has an umbilical hernia. No masses. No detectable hepatosplenomegaly, tested by palpation or percussion. There are some purpuric lesions on the abdominal wall. EXTREMITIES: Lower extremities reveal SCDs in place and underneath them, there is mild edema and patchy hyperpigmentation. Her arms also reveal patchy black/dark brown hyperpigmentation, but there are some purpuric lesions as well. LABORATORY DATA: Medical data from 12/07/2018, the most recent CBC from [facility] showed a hemoglobin of 8.7, hematocrit 29.3%, MCV 97.3, RDW 18.3, platelet count 131,000, white blood cell count 9000 with 67% neutrophils plus 18% lymphocytes, 12% monocytes, 1% eosinophils, no basophils and 2.7% immature granulocytes. During that hospital stay, viral studies were positive for coronavirus and metapneumovirus. Earlier in 2018, serum protein electrophoresis and free light assays were negative for paraproteins. on 12/07/2018 showed a BUN of 74, creatinine 1.9 with an estimated GFR of 26.7. Calcium 8.1, [place] 2[place] [address] CONSULTATION Name: MAGNO GRISSOMYCE Cait Room: [address] IN [facility].#: [id number] Admission: 12/16/18 Attend Phys: Naseem Mock MD Discharge: Date of : 45 Report #: [id number] From [place], I reviewed the history and physical by Dr. Escalona and I reviewed the laboratory studies on 12/16/2018, which revealed normal electrolytes, BUN 67 and creatinine 2.1. Albumin 2.4, total protein 5.6. She had several values that showed increased NT-proBNP. Today, her hemoglobin is 7.9, hematocrit 25.5%, MCV 93.5, RDW 19.6, platelet count 134,000, white blood cell count 7200 with 84% segmented neutrophils plus 13.3% lymphocytes, 8% monocytes, 0.6% eosinophils, 0.4% basophils and 1% atypical lymphocytes. SUMMARY: The patient has an anemia that in the past has been shown to be at least partly related to immune destruction. She has required intermediate doses of glucocorticoids to maintain her hemoglobin and hematocrit. She is currently on p.o. and IV steroids. Prednisone p.o. is probably good enough for the red cell problem, but IV steroids may be necessary for her respiratory one. I will recommend that she undergo simple testing of production and destruction. I do not think a bone marrow examination is needed, and in fact in early 08/2018, she underwent bone marrow aspiration and biopsy that did not reveal any evidence of myelodysplasia or myeloproliferative process and she had a normal female karyotype. <ELECTRONICALLY SIGNED> By: Nicholas Flood MD 12/21/18 1719 [id number] Flood MD /nt
[2018-12-21 20:20] VITALS: BP 140/57
[2018-12-22] VITALS: BP 96/54
[2018-12-22 04:00] VITALS: BP 122/62
--- NOTE | 2018-12-22 05:50 | NUR ---
PT IS ABLE TO COMMUNICATE HER NEEDS TO STAFF EFFECTIVELY. CURRENT PAIN MEDICATION REGIMEN HAS BEEN ADEQUATE FOR CONTROLLING HER PAIN UP TO THIS TIME. EXTENSIVE BRUISING TO PT'S UPPER AND LOWER BODY; MD IS AWARE. SHE REMAINS MOSTLY INCONTINENT OF BOWEL AND BLADDER.
[2018-12-22 08:49] VITALS: BP 145/71
[2018-12-22 12:08] VITALS: BP 136/64
--- NOTE | 2018-12-22 12:35 | NUR ---
ORDERS RECEIVED FOR PT TO RETURN TO [facility]. CALLED AND SPOKE WITH SHARYN/ANDRES. SHE ASKED THAT REFERRAL BE FAXED OVER, SHE WILL REVIEW AND CALL CM BACK IF ABLE TO ACCEPT TODAY
[2018-12-22 12:49] LABS: HEMATOCRIT 25.7 % (37.0-47.0); MCH 29.6 pg (26.0-34.0); MCV 95.4 fL (80.0-100.0); MPV 9.5 fl. (7.2-11.1); NUCLEATED RBCS 0 /100WBC; PLATELET COUNT* 171 thou/uL (150-400); RBC 2.69 mil/uL (4.20-5.00); RDW-CV 19.6 % (10.5-14.5); WBC 8.4 thou/uL (4.0-11.0)
[2018-12-22] MEDS ORDERED: CEFDINIR300 MG PO (12:56)
[2018-12-22 12:58] LABS: ALBUMIN 2.3 g/dL (3.4-5.0); CALCIUM 8.2 mg/dL (8.5-10.1); CREATININE 2.1 mg/dL (0.6-1.3); POTASSIUM 5.5 mmol/L (3.5-5.1); TOTAL BILIRUBIN 0.3 mg/dL (<0.1-1.0); TOTAL PROTEIN 5.2 g/dL (6.4-8.2)
[2018-12-22] MEDS ORDERED: DIFLUCAN200 MG PO ×2 (12:59→13:32)
[2018-12-22 13:07] LABS: ABSOLUTE LYMPHOCYTES 0.5 thou/uL (0.8-5.3); ABSOLUTE MONOCYTES 0.4 thou/uL (0.0-1.2); ABSOLUTE NEUTROPHILS 7.5 thou/uL (1.6-8.1); PLATELET ESTIMATE ADEQUATE; POLYCHROMASIA 1+
[2018-12-22 13:08] LABS: ANISOCYTOSIS 1+; HYPOCHROMASIA 1+; OVALOCYTES Occasional; POIKILOCYTOSIS 1+
--- NOTE | 2018-12-22 13:49 | NUR ---
PATIENT CARE ASSUMED AT 0700. PATIENT AOX4, CALM, PLEASANT. ON CPAP UPON ENTERING ROOM, REMOVED AND PLACED ON 2L NC. ASSESSMENT DOCUMENTED. PATIENT INCONTINENT X2 THIS SHIFT. ONE BOWEL MOVEMENT NOTED. BATH GIVEN. PATIENT DISCHARGING TO [facility] FOR [facility] TREATMENT. FAMILY CONTACTED BY PHYSICIAN. DAUGHTER IN ROOM WITH PATIENT. REPORT GIVEN TO NURSE AT [facility]. ALL QUESTIONS ANSWERED. TRANSPORT ARRANGED FOR 1500 BY AMBULANCE.
--- NOTE | 2018-12-22 15:09 | NUR ---
PATIENT LEFT UNIT AT 1508 BY AMBULANCE. DAUGHTER AND TOOK PATIENT'S BELONGINGS TO FACILITY. ROOM CHECKED AFTER DISCHARGE. NO BELONGINGS LEFT.
--- NOTE | 2018-12-22 15:53 | NUR ---
FABIOLA FROM [facility] CALLED TO CLARIFY PATIENT'S WEIGHT FROM DISCHARGE. INFORMATION GIVEN. NO OTHER QUESTIONS ASKED.
== END 2018-12-22 15:08 | DRG 177 ==
LOC: M.ERS 08:32 → M.TBA-ER 09:46 → M.ICU 11:39 → M.2W 11:39 → M.TBA-ER 11:39 → M.ICU 14:47 → M.2W 12-17 13:01
PROVIDERS: Internal Medicine; Personal Emergency Response Attendant; Specialist
PROC: 5A09357 Assistance with Respiratory Ventilation, Less than 24 Consecutive Hours, Continuous Positive Airway Pressure (ICD-10-PCS; principal; 2018-12-17)
PROC: 5A09357 Assistance with Respiratory Ventilation, Less than 24 Consecutive Hours, Continuous Positive Airway Pressure (ICD-10-PCS; 2018-12-18)
PROC: 5A09357 Assistance with Respiratory Ventilation, Less than 24 Consecutive Hours, Continuous Positive Airway Pressure (ICD-10-PCS; 2018-12-19)
PROC: 5A09357 Assistance with Respiratory Ventilation, Less than 24 Consecutive Hours, Continuous Positive Airway Pressure (ICD-10-PCS; 2018-12-20)
PROC: 5A09357 Assistance with Respiratory Ventilation, Less than 24 Consecutive Hours, Continuous Positive Airway Pressure (ICD-10-PCS; 2018-12-21)
DX: J15.6 Pneumonia due to other Gram-negative bacteria (principal); J96.01 Acute respiratory failure with hypoxia; J96.02 Acute respiratory failure with hypercapnia; I50.21 Acute systolic (congestive) heart failure; G93.40 Encephalopathy, unspecified; J44.0 Chronic obstructive pulmonary disease with (acute) lower respiratory infection; J44.1 Chronic obstructive pulmonary disease with (acute) exacerbation; I50.32 Chronic diastolic (congestive) heart failure; N18.4 Chronic kidney disease, stage 4 (severe); I38 Endocarditis, valve unspecified; N39.0 Urinary tract infection, site not specified; D59.1 Other autoimmune hemolytic anemias; I48.91 Unspecified atrial fibrillation; E11.649 Type 2 diabetes mellitus with hypoglycemia without coma; Z96.653 Presence of artificial knee joint, bilateral; E03.9 Hypothyroidism, unspecified; F41.9 Anxiety disorder, unspecified; K43.9 Ventral hernia without obstruction or gangrene; E11.51 Type 2 diabetes mellitus with diabetic peripheral angiopathy without gangrene; M06.9 Rheumatoid arthritis, unspecified; F32.9 Major depressive disorder, single episode, unspecified; G47.33 Obstructive sleep apnea (adult) (pediatric); G40.909 Epilepsy, unspecified, not intractable, without status epilepticus; I25.10 Atherosclerotic heart disease of native coronary artery without angina pectoris; K21.9 Gastro-esophageal reflux disease without esophagitis; E11.22 Type 2 diabetes mellitus with diabetic chronic kidney disease; Z87.891 Personal history of nicotine dependence; Z95.0 Presence of cardiac pacemaker; Z74.01 Bed confinement status; Z95.2 Presence of prosthetic heart valve; Z98.891 History of uterine scar from previous surgery; Z90.49 Acquired absence of other specified parts of digestive tract; Z79.01 Long term (current) use of anticoagulants; Z79.4 Long term (current) use of insulin; Z79.51 Long term (current) use of inhaled steroids; Z79.899 Other long term (current) drug therapy; Z88.1 Allergy status to other antibiotic agents; Z88.2 Allergy status to sulfonamides; Z88.8 Allergy status to other drugs, medicaments and biological substances; Z91.048 Other nonmedicinal substance allergy status; E66.01 Morbid (severe) obesity due to excess calories; Z68.35 Body mass index [BMI] 35.0-35.9, adult